=== PATIENT | female | born 1980 | race Caucasian/White ===

== ENCOUNTER 2016-08-07 18:52 | Emergency (ER) | payer OTHER ==
[~2016-08-07 18:52] MED LIST: DARVOCET-N 1001 EA PO; FLEXERIL10 MG PO; HYDROCODON-ACE1 EAC8 PO; MACROBID100 MG/CAP PO; NORCO 5/325 TAB1 TAB PO; NORCO 7.5/325 T1 TAB PO; PERCOCET 5/3251 TAB PO; TRAMADOL HCL50 MG PO; VIBRA-TABS100 MG PO; no daily meds
[2016-08-07] MEDS ORDERED: DICLOFENAC POTA50 M1 PO (19:24)
[2016-08-07 20:28] LABS: BASO % 0.4 % (0-2); EOS % 1.1 % (0-7); EOSINOPHIL ABSOLUTE COUNT 0.1 tho/cmm (0.0-0.7); HCT-HEMATOCRIT 39.5 % (34.0-49.0); HGB-HEMOGLOBIN 14.1 gm/dl (12.0-15.5); IMMATURE GRANULOCYTES ABSOLUTE 0.02 tho/cmm (0-0.03); IMMATURE GRANULOCYTES PERCENT 0.3 % (0-0.3); LYMPH ABSOLUTE COUNT 3.2 tho/cmm (0.8-4.5); MCH (MEAN CORPUSCULAR HGB) 30.2 pg (28.0-32.0); MCHC MEAN CORPUSCULAR HGB CONC 35.7 % (32.0-36.0); MCV (MEAN CELL VOLUME) 84.6 fl (82.0-96.0); MEAN PLATELET VOLUME 9.4 cmc (9.4-12.4); MONO % 11.3 % (0-12); MONOCYTE ABSOLUTE COUNT 0.9 tho/cmm (0.0-1.2); NEUTROPHIL ABSOLUTE COUNT 3.6 tho/cmm (1.6-8.0); NEUTROPHIL-AUTOMATED 3.6 tho/cmm (1.6-8.0); NEUTROPHILS % 45.9 % (40-80); PLATELET COUNT 269 tho/cmm (150-450); RED BLOOD COUNT 4.67 mil/cmm (4.00-5.20); WHITE BLOOD COUNT 7.9 tho/cmm (4.0-10.0)
[2016-08-07 20:46] LABS: PREGNANCY-SERUM NEGATIVE (NEGATIVE)
[2016-08-07 20:56] LABS: ALB/GLOB RATIO 1.2 (0.8-2.0); ALBUMIN 4.1 g/dl (3.5-5.0); ALKALINE PHOSPHATASE 60 U/L (33-138); ALT/SGPT 18 U/L (12-78); BILIRUBIN,TOTAL 0.4 mg/dl (0-1.5); BLOOD UREA NITROGEN 10 mg/dl (6-24); CARBON DIOXIDE-VENOUS 29 mmol/L (22-32); CHLORIDE 102 mmol/l (96-110); CREATININE 0.69 mg/dl (0.50-1.10); GLUCOSE 82 mg/dL (70-110); SODIUM 140 mmol/L (135-145); T4 (THYROXINE) 11.1 ug/dl (5.0-12.6); eGFR VALUE FOR BLACK >90 mL/Min
[2016-08-07 20:57] LABS: ANION GAP 13 mmol/L (0-20); AST/SGOT 11 U/L (10-40); MAGNESIUM 2.1 mg/dl (1.8-2.6); POTASSIUM 3.5 mmol/L (3.7-5.1)
[2016-08-07 21:01] LABS: TSH-THYROID STIMULATING HORM. 3.03 uIU/ml (0.40-3.80)
[2016-08-07] MEDS ORDERED: CYCLOBENZAPRINE5 M1 PO (22:10)
[2016-08-07] MEDS ORDERED: NAPROSYN500 M1 PO (22:10)
== END 2016-08-07 22:25 ==
LOC: EDMED 18:52
PROVIDERS: Family Medicine
DX: G43.909 Migraine, unspecified, not intractable, without status migrainosus (principal); R20.2 Paresthesia of skin; Z98.890 Other specified postprocedural states
CPT/HCPCS: J1100; J1200; J2765; J3030; J7030